=== PATIENT | male | born 1940 | race Caucasian/White ===

== ENCOUNTER 2018-02-22 10:54 | Inpatient (IN) | payer MEDICARE ==
[2018-02-22] MEDS ORDERED: ASPIRIN 81 MG TABLET, CHEWABLE PO ONE (11:16)
--- NOTE | 2018-02-22 11:18 | ER Document Report ---
ED Medical Screen (RME) - General Chief Complaint: Chest Pain Stated Complaint: CHEST PAIN Time Seen by Provider: 02/22/18 11:16 Notes: 77 years old male with no significant past medical history presents today with 2 episodes one yesterday morning and another this morning with epigastric/ substernal pain radiating to the both sides and numbness in the arm and weakness in the arm, general weakness lasting for about 2-3 hours. Associated with palpitation no nausea vomiting. Denied any difficulty in breathing. No cardiac history. No family history of cardiac history. Non-smoker no alcohol abuse. Currently feeling comfortable not in any distress. Examination benign TRAVEL OUTSIDE OF THE [place] IN LAST 30 DAYS: No - Related Data Allergies/Adverse Reactions: Iodinated Contrast- Oral and IV Dye [IV Dye, Iodine Containing] Allergy ( Verified 02/22/18 11:07) Anaphylaxis Past Medical History - Past Medical History Cardiac Medical History: Denies: Hx Heart Attack, Hx Hypertension Pulmonary Medical History: Denies: Hx Asthma Neurological Medical History: Denies: Hx Cerebrovascular Accident, Hx Seizures GI Medical History: Denies: Hx Hepatitis, Hx Hiatal Hernia, Hx Ulcer Infectious Medical History: Denies: Hx Hepatitis Past Surgical History: Denies: Hx Open Heart Surgery, Hx Pacemaker Doctor's Discharge - Discharge Referrals: BRAN SCHROEDER MD [Primary Care Provider] - Follow up as needed
[2018-02-22 11:54] LABS: HEMATOCRIT 44.2 % (37.9-51.0); HEMOGLOBIN 14.7 g/dL (13.5-17.0); MEAN CORPUSCULAR HEMOGLOBIN 31.9 pg (27.0-33.4); MEAN CORPUSCULAR HGB CONC 33.3 g/dL (32.0-36.0); MEAN CORPUSCULAR VOLUME 96 fl (80-97); PLATELET COUNT 189 10^3/uL (150-450); RED CELL DISTRIBUTION WIDTH 14.1 % (11.5-14.0); WHITE BLOOD COUNT 13.9 10^3/uL (4.0-10.5)
[2018-02-22 12:06] LABS: ALANINE AMINOTRANSFERASE 20 U/L (21-72); ALBUMIN 3.8 g/dL (3.5-5.0); ALKALINE PHOSPHATASE 56 U/L (38-126); ANION GAP 7 (5-19); ASPARTATE AMINO TRANSFERASE 15 U/L (17-59); BILIRUBIN,DIRECT 0.5 mg/dL (0.0-0.4); BILIRUBIN,TOTAL 0.9 mg/dL (0.2-1.3); BLOOD UREA NITROGEN 19 mg/dL (7-20); CARBON DIOXIDE 30 mmol/L (22-30); CHLORIDE 103 mmol/L (98-107); CREATINE KINASE 36 U/L (55-170); GLUCOSE 101 mg/dL (75-110); POTASSIUM 4.4 mmol/L (3.6-5.0); SODIUM 139.5 mmol/L (137-145); TOTAL PROTEIN 6.2 g/dL (6.3-8.2)
[2018-02-22 12:17] LABS: CREATINE KINASE MB 2.1 ng/mL (<4.55)
--- NOTE | 2018-02-22 12:18 | RADIOLOGY REPORT (SQ) ---
EXAM DESCRIPTION: CHEST SINGLE VIEW COMPLETED DATE/TIME: 02/22/2018 12:05 pm REASON FOR STUDY: Chest pain COMPARISON: None. EXAM PARAMETERS: NUMBER OF VIEWS: One view. TECHNIQUE: Single frontal radiographic view of the chest acquired. RADIATION DOSE: NA LIMITATIONS: Low lung volumes. FINDINGS: LUNGS AND PLEURA: No opacities, masses or pneumothorax. No pleural effusion. MEDIASTINUM AND HILAR STRUCTURES: No masses. Contour normal. HEART AND VASCULAR STRUCTURES: Heart is enlarged. No failure. BONES: No acute findings. HARDWARE: None in the chest. OTHER: No other significant finding. IMPRESSION: Negative chest allowing for low lung volumes. TECHNICAL DOCUMENTATION: JOB ID: [id number] [employer]- All Rights Reserved Reading location - IP/workstation name: [email or web address]
[2018-02-22 12:26] LABS: TROPONIN I 0.21 ng/mL
[2018-02-22 12:45] LABS: ABSOLUTE LYMPHOCYTES# (MANUAL) 8.8 10^3/uL (0.5-4.7); ABSOLUTE MONOCYTES # (MANUAL) 0.4 10^3/uL (0.1-1.4); ABSOLUTE NEUTROPHILS# (MANUAL) 4.7 10^3/uL (1.7-8.2); BASOPHILS % (MANUAL) 0 % (0-2); EOSINOPHILS % (MANUAL) 0 % (0-6); LYMPHOCYTES % (MANUAL) 37 % (13-45); MONOCYTES % (MANUAL) 3 % (3-13); SEGMENTED NEUTROPHILS % (MAN) 34 % (42-78); TOTAL CELLS COUNTED 100
[2018-02-22 13:00] LABS: HYPOCHROMASIA SLIGHT; OVALOCYTES SLIGHT; POIKILOCYTOSIS SLIGHT; SMUDGE CELLS PRESENT
[2018-02-22 13:01] LABS: PLATELET COMMENT ADEQUATE
--- NOTE | 2018-02-22 14:38 | EKG REPORT ---
SEVERITY:- ABNORMAL ECG - SINUS RHYTHM FIRST DEGREE AV BLOCK BORDERLINE LEFT AXIS DEVIATION : Confirmed by: Bianca Palomo MD 22-Feb-2018 14:38:14
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
[2018-02-22 15:52] LABS: APPEARANCE,URINE SLIGHTLY-CLOUDY; BILIRUBIN,URINE NEGATIVE (NEGATIVE); COLOR,URINE YELLOW; GLUCOSE, URINE NEGATIVE (NEGATIVE); KETONES,URINE NEGATIVE (NEGATIVE); LEUKOCYTE ESTERASE,URINE NEGATIVE (NEGATIVE); NITRITE,URINE NEGATIVE (NEGATIVE); PROTEIN,URINE NEGATIVE (NEGATIVE); URINE SPECIFIC GRAVITY 1.014; UROBILINOGEN,URINE NEGATIVE mg/dL (<2.0)
[2018-02-22] MEDS ORDERED: MORPHINE SULFATE 10 MG/ML INJ IV PRN (15:56)
[2018-02-22] MEDS ORDERED: NORMAL SALINE 1000 ML 1,000 ML IV PRN (15:56)
--- NOTE | 2018-02-22 16:27 | PDOC H&P ---
History of Present Illness Admission Date/PCP: 02/22/18 15:44 DILCIA MARTINEZ MD Patient complains of: Chest pain/tightness History of Present Illness: DUGLAS DICKENS SR is a 77 year old male who presents to the emergency room with tightness across his chest. There is no radiation. Patient's onset of symptoms were yesterday morning patient had an hour and a half of chest pain. He attributed it to heartburn and took an omeprazole of his 's Tums and an aspirin. His pain resolved and he went about his business he had no further chest pain throughout the day. This morning he had another episode he took Tagamet of his 's Tums and at this point because he never complains of any problems his insisted he come to the emergency room. Workup in the emergency room included laboratory studies which showed an abnormal lymphocyte count and a white count of 13,000 it was recommended patient have a flow cytometry done which was ordered by the emergency room physician. His troponin was elevated at 0.2 his EKG showed a normal sinus rhythm with a first-degree block no other ischemic changes noted. Patient suffers from arthritis and takes meloxicam and vitamins he is on no other medications he denies coronary disease denies cholesterol issues. Both parents lived into their 90s. Patient currently is pain-free will be admitted for his non-ST elevation myocardial infarction. Past Medical History Medical History: None - Other than osteoarthritis for which she takes meloxicam Cardiac Medical History: Denies: Myocardial Infarction, Hypertension Pulmonary Medical History: Denies: Asthma Neurological Medical History: Denies: Seizures GI Medical History: Denies: Hepatitis, Hiatal Hernia Hematology: Denies: Anemia, Sickle Cell Disease Past Surgical History Past Surgical History: Reports: Other - Lithotripsy, cataract, strabismus surgery x2 Denies: Pacemaker Social History Information Source: Patient Lives with: Spouse/Significant other Smoking Status: Never Smoker Frequency of Alcohol Use: Rare Drugs: None - Advance Directive Resuscitation Status: Full Code Family History Family History: Reviewed & Not Pertinent, Other - Parents in their late 90s Parental Family History Reviewed: Yes Children Family History Reviewed: Yes Sibling(s) Family History Reviewed.: Yes Medication/Allergy Allergies/Adverse Reactions: Iodinated Contrast- Oral and IV Dye [IV Dye, Iodine Containing] Allergy ( Verified 02/22/18 11:07) Anaphylaxis Review of Systems Constitutional: ABSENT: chills, fever(s), headache(s), weight gain, weight loss Ears: ABSENT: as per HPI, hearing changes, other Nose, Mouth, and Throat: ABSENT: as per HPI, headache(s), mouth pain, sore throat, vertigo, other Cardiovascular: PRESENT: chest pain. ABSENT: dyspnea on exertion, edema, orthropnea Respiratory: ABSENT: cough, hemoptysis Gastrointestinal: PRESENT: heartburn. ABSENT: abdominal pain, constipation, diarrhea, hematemesis, hematochezia, nausea, vomiting Genitourinary: ABSENT: dysuria, hematuria Musculoskeletal: ABSENT: joint swelling Integumentary: ABSENT: rash, wounds Neurological: ABSENT: abnormal gait, abnormal speech, confusion, dizziness, focal weakness, syncope Psychiatric: ABSENT: anxiety, depression, homidical ideation, suicidal ideation Endocrine: ABSENT: cold intolerance, heat intolerance, polydipsia, polyuria Hematologic/Lymphatic: ABSENT: easy bleeding, easy bruising Physical Exam Vital Signs: Temp Pulse Resp BP Pulse Ox 98.2 F 54 L 20 166/89 H 97 02/22/18 11:08 02/22/18 11:08 02/22/18 12:01 02/22/18 12:01 02/22/18 12:01 General appearance: PRESENT: no acute distress, well-developed, well-nourished Eye exam: PRESENT: conjunctiva pink, EOMI, PERRLA. ABSENT: scleral icterus Ear exam: PRESENT: normal external ear exam Mouth exam: PRESENT: moist, tongue midline Neck exam: ABSENT: carotid bruit, JVD, lymphadenopathy, thyromegaly Respiratory exam: PRESENT: clear to auscultation veronika. ABSENT: rales, rhonchi, wheezes Cardiovascular exam: PRESENT: RRR. ABSENT: diastolic murmur, rubs, systolic murmur Pulses: PRESENT: normal dorsalis pedis pul Vascular exam: PRESENT: normal capillary refill GI/Abdominal exam: PRESENT: normal bowel sounds, soft. ABSENT: distended, guarding, mass, organolmegaly, rebound, tenderness Extremities exam: PRESENT: full ROM. ABSENT: calf tenderness, clubbing, pedal edema Musculoskeletal exam: PRESENT: normal inspection. ABSENT: deformity, tenderness Neurological exam: PRESENT: alert, awake, oriented to person, oriented to place , oriented to time, oriented to situation, CN II-XII grossly intact. ABSENT: motor sensory deficit Psychiatric exam: PRESENT: appropriate affect, normal mood. ABSENT: homicidal ideation, suicidal ideation Skin exam: PRESENT: dry, intact, warm. ABSENT: cyanosis, rash Results Impressions: Chest X-Ray 02/22/18 11:16 IMPRESSION: Negative chest allowing for low lung volumes. Assessment & Plan - Diagnosis (1) NSTEMI (non-ST elevated myocardial infarction) Is this a current diagnosis for this admission?: Yes Plan: Case discussed with Dr. Palomo of cardiology. Will admit patient place on therapeutic Lovenox we will add beta-sherron and CHARLENE inhibitor for his hypertension. Patient has no history of hypertension but clearly is hypertensive at this time. Patient additionally has no prior history of cardiac disease or hyperlipidemia. Will initiate statin therapy with Lipitor and obtain a lipid panel in the morning. We will give patient gentle hydration in anticipation of possible cardiac catheterization although he is allergic to iodine. The plan currently is for patient undergo stress test on Monday. Will trend troponins (2) Hypertension Qualifiers: Hypertension type: unspecified secondary hypertension Qualified Code(s): I15.9 - Secondary hypertension, unspecified; I15 - Secondary hypertension Plan: No prior history of hypertension. Will initiate metoprolol 25 mg twice daily and lisinopril 10 mg daily. Additionally will apply Nitropaste for his chest pain complaint. (3) Chest pain Qualifiers: Chest pain type: unspecified Qualified Code(s): R07.9 - Chest pain, unspecified Plan: 2 days of chest pain 20 minutes to an hour and a half in duration. No prior history of exertional chest pain history. Elevated troponin currently pain-free - Time Time Spent: 50 to 70 Minutes Anticipated discharge: Home - Inpatient Certification Based on my medical assessment, after consideration of the patient's comorbidities, presenting symptoms, or acuity I expect that the services needed warrant INPATIENT care.: Yes I certify that my determination is in accordance with my understanding of Medicare's requirements for reasonable and necessary INPATIENT services [42 CFR 412.3e].: Yes Medical Necessity: Need Close Monitoring Due to Risk of Patient Decompensation
[2018-02-22] MEDS ORDERED: METOPROLOL TARTRATE 25 MG TABLET ONE (18:33)
[2018-02-22] MEDS ORDERED: LISINOPRIL 10 MG TABLET ONE (18:33)
[2018-02-22] MEDS: NITROGLYCERIN 2% OINTMENT 1 GM PACKET TP SCH (18:41)
[2018-02-22] MEDS ORDERED: LISINOPRIL 10 MG TABLET PO ONE (19:00)
[2018-02-22] MEDS ORDERED: METOPROLOL TARTRATE 25 MG TABLET PO ONE (19:00)
[2018-02-22] MEDS: FAMOTIDINE 20 MG TABLET PO SCH (21:19)
[2018-02-22] MEDS: ENOXAPARIN SODIUM INJ 120 MG/0.8 ML DISP.SYRIN SUBCUT SCH (21:19)
[2018-02-22] MEDS ORDERED: METOPROLOL TARTRATE 25 MG TABLET PO SCH ×2 (22:00)
[2018-02-22] MEDS ORDERED: ATORVASTATIN CALCIUM 40 MG TABLET PO SCH (22:00)
[2018-02-23] MEDS: NITROGLYCERIN 2% OINTMENT 1 GM PACKET TP SCH ×3 (00:22→12:39)
[2018-02-23 04:01] LABS: HEMATOCRIT 38.9 % (37.9-51.0); HEMOGLOBIN 12.9 g/dL (13.5-17.0); MEAN CORPUSCULAR HEMOGLOBIN 31.8 pg (27.0-33.4); MEAN CORPUSCULAR HGB CONC 33.3 g/dL (32.0-36.0); MEAN CORPUSCULAR VOLUME 96 fl (80-97); PLATELET COUNT 142 10^3/uL (150-450); RED BLOOD COUNT 4.08 10^6/uL (4.35-5.55); RED CELL DISTRIBUTION WIDTH 14.2 % (11.5-14.0); WHITE BLOOD COUNT 10.4 10^3/uL (4.0-10.5)
[2018-02-23 04:16] LABS: BLOOD UREA NITROGEN 21 mg/dL (7-20); CALCIUM 8.9 mg/dL (8.4-10.2); CHOLESTEROL 134.56 mg/dL (0-200); GLUCOSE 106 mg/dL (75-110); PHOSPHORUS 3.8 mg/dL (2.5-4.5); POTASSIUM 4.4 mmol/L (3.6-5.0); TRIGLYCERIDES 119 mg/dL (<150)
[2018-02-23 04:21] LABS: ANION GAP 5 (5-19); CARBON DIOXIDE 28 mmol/L (22-30); CHLORIDE 106 mmol/L (98-107); SODIUM 139.1 mmol/L (137-145)
[2018-02-23 04:27] LABS: DIRECT LDL 88 mg/dL (<100)
[2018-02-23] MEDS ORDERED: NORMAL SALINE 1000 ML 1,000 ML IV PRN (07:59)
[2018-02-23] MEDS ORDERED: ASPIRIN 81 MG TABLET, ENT COATED PO SCH (10:00)
[2018-02-23] MEDS ORDERED: METOPROLOL TARTRATE 25 MG TABLET PO SCH (10:00)
[2018-02-23] MEDS ORDERED: LISINOPRIL 5 MG TABLET PO SCH ×2 (10:00)
[2018-02-23] MEDS: ENOXAPARIN SODIUM INJ 120 MG/0.8 ML DISP.SYRIN SUBCUT SCH (10:05)
[2018-02-23] MEDS: FAMOTIDINE 20 MG TABLET PO SCH (10:05)
[2018-02-23 11:03] LABS: APPEARANCE,URINE CLEAR; BILIRUBIN,URINE NEGATIVE (NEGATIVE); COLOR,URINE YELLOW; GLUCOSE, URINE NEGATIVE (NEGATIVE); KETONES,URINE NEGATIVE (NEGATIVE); LEUKOCYTE ESTERASE,URINE NEGATIVE (NEGATIVE); NITRITE,URINE NEGATIVE (NEGATIVE); PROTEIN,URINE NEGATIVE (NEGATIVE); URINE SPECIFIC GRAVITY 1.016; UROBILINOGEN,URINE NEGATIVE mg/dL (<2.0)
--- NOTE | 2018-02-23 11:52 | PDOC PROGRESS REPORT ---
Subjective Progress Note for:: 02/23/18 Subjective:: 77-year-old white male with chest pain complaint elevated troponin. Troponins peaked at 0.35 an hour downtrending. EKG this morning shows anterior lateral ischemic changes in the T waves. Echocardiogram pending. Patient denies any chest pain since admission. Reason For Visit: NSTEMI Physical Exam Vital Signs: Temp Pulse Resp BP Pulse Ox 98.1 F 58 L 18 123/82 97 02/23/18 08:04 02/23/18 08:04 02/23/18 08:04 02/23/18 08:04 02/23/18 08:04 Intake & Output 02/22/18 02/23/18 02/24/18 06:59 06:59 06:59 Intake Total 50 Output Total 3 Balance 47 Weight 106.4 kg General appearance: PRESENT: no acute distress, well-developed, well-nourished Neck exam: ABSENT: carotid bruit, JVD, lymphadenopathy, thyromegaly Respiratory exam: PRESENT: clear to auscultation veronika. ABSENT: rales, rhonchi, wheezes Cardiovascular exam: PRESENT: RRR. ABSENT: diastolic murmur, rubs, systolic murmur GI/Abdominal exam: PRESENT: normal bowel sounds, soft. ABSENT: distended, guarding, mass, organolmegaly, rebound, tenderness Extremities exam: PRESENT: full ROM. ABSENT: calf tenderness, clubbing, pedal edema Results Laboratory Results: 02/23/18 03:54 02/23/18 03:54 02/23/18 02/23/18 02/23/18 03:54 03:54 10:12 WBC 10.4 RBC 4.08 L Hgb 12.9 L Hct 38.9 MCV 96 MCH 31.8 MCHC 33.3 RDW 14.2 H Plt Count 142 L Sodium 139.1 Potassium 4.4 Chloride 106 Carbon Dioxide 28 Anion Gap 5 BUN 21 H Creatinine 1.00 Est GFR ( Amer) > 60 Est GFR (Non-Af Amer) > 60 Glucose 106 Calcium 8.9 Phosphorus 3.8 Triglycerides 119 Cholesterol 134.56 LDL Cholesterol Direct 88 VLDL Cholesterol 24.0 HDL Cholesterol 28 L Urine Color Urine Appearance Urine pH Ur Specific [place] Urine Protein Urine Glucose (UA) Urine Ketones Urine Blood Urine Nitrite Ur Leukocyte Esterase Urine WBC (Auto) Urine RBC (Auto) Stool Occult Blood NEGATIVE 02/23/18 10:12 WBC RBC Hgb Hct MCV MCH MCHC RDW Plt Count Sodium Potassium Chloride Carbon Dioxide Anion Gap BUN Creatinine Est GFR ( Amer) Est GFR (Non-Af Amer) Glucose Calcium Phosphorus Triglycerides Cholesterol LDL Cholesterol Direct VLDL Cholesterol HDL Cholesterol Urine Color YELLOW Urine Appearance CLEAR Urine pH 5.0 Ur Specific [place] 1.016 Urine Protein NEGATIVE Urine Glucose (UA) NEGATIVE Urine Ketones NEGATIVE Urine Blood NEGATIVE Urine Nitrite NEGATIVE Ur Leukocyte Esterase NEGATIVE Urine WBC (Auto) 0 Urine RBC (Auto) 0 Stool Occult Blood 02/22/18 02/22/18 02/23/18 16:43 22:03 03:54 Troponin I 0.334 0.356 0.256 Impressions: Chest X-Ray 02/22/18 11:16 IMPRESSION: Negative chest allowing for low lung volumes. Assessment & Plan - Diagnosis (1) NSTEMI (non-ST elevated myocardial infarction) Is this a current diagnosis for this admission?: Yes Plan: Troponins now downtrending. EKG evolved with your lateral changes. Case discussed with Dr. Palomo who is recommending transfer for cardiac catheterization. Continue patient's beta-sherron CHARLENE inhibitor (2) Hypertension Qualifiers: Hypertension type: unspecified secondary hypertension Qualified Code(s): I15.9 - Secondary hypertension, unspecified; I15 - Secondary hypertension Is this a current diagnosis for this admission?: Yes Plan: Currently normotensive continue CHARLENE inhibitor and beta-sherron (3) Chest pain Qualifiers: Chest pain type: unspecified Qualified Code(s): R07.9 - Chest pain, unspecified Is this a current diagnosis for this admission?: Yes Plan: Further chest pain since admission. (4) Hyperlipidemia Is this a current diagnosis for this admission?: Yes Plan: Patient's cholesterol panel indicates elevated LDL of 88 depressed HDL of 28 and cholesterol of 134.. Continue Lipitor at 40 mg daily. - Time Time Spent with patient: 25-34 minutes
[2018-02-23 12:53] VITALS: BP 146/90
[2018-02-23] MEDS ORDERED: HYDROCORTISONE SOD SUCCINATE INJ/PF 100 MG/2 ML SDV IV SCH (13:00)
[2018-02-23] MEDS ORDERED: FAMOTIDINE 20 MG TABLET PO SCH (13:00)
[2018-02-23] MEDS ORDERED: DIPHENHYDRAMINE HCL 25 MG CAPSULE PO SCH (13:00)
--- NOTE | 2018-02-23 13:03 | PDOC TRANSFER SUMMARY ---
General Admission Date/PCP: 02/22/18 15:44 DILCIA MARTINEZ MD Admission Date: 02/22/18 Transfer Date: 02/23/18 Accepting Facility: [facility] Accepting Physician: Dr. Chioma Bryant Resuscitation Status: Full Code - Transfer Diagnosis (1) NSTEMI (non-ST elevated myocardial infarction) Is this a current diagnosis for this admission?: Yes (2) Hypertension Is this a current diagnosis for this admission?: Yes (3) Chest pain Is this a current diagnosis for this admission?: Yes (4) Hyperlipidemia Is this a current diagnosis for this admission?: Yes - Transfer Medications Home Medications: Cholecalciferol (Vitamin D3) [Vitamin D3] 1,000 unit PO DAILY 02/22/18 Cyanocobalamin (Vitamin B-12) [Vitamin B-12 1000 mcg Tablet] 1,000 mcg PO DAILY 02/22/18 Meloxicam [Mobic] 15 mg PO DAILY 02/22/18 Transfer Medications: Current Medications Aspirin (Ecotrin 81 Mg Ec Tablet) 81 mg PO DAILY [facility] Stop: 03/25/18 09:59 Last Admin: 02/23/18 10:05 Dose: 81 mg Atorvastatin Calcium (Lipitor 40 Mg Tablet) 40 mg PO QHS [facility] Stop: 03/24/18 21:59 Last Admin: 02/22/18 21:19 Dose: 40 mg Diphenhydramine HCl (Benadryl 25 Mg Capsule) 25 mg PO Q6 [facility] Stop: 03/25/18 12:59 Last Admin: 02/23/18 12:37 Dose: 25 mg Enoxaparin Sodium (Lovenox Inj 120 Mg/0.8 Ml Disp.Syrin) 105 mg SUBCUT Q12 [facility] Stop: 03/24/18 21:59 Last Admin: 02/23/18 10:05 Dose: 105 mg Famotidine (Pepcid 20 Mg Tablet) 20 mg PO Q12 [facility] Stop: 03/24/18 21:59 Last Admin: 02/23/18 10:05 Dose: 20 mg Hydrocortisone Sodium Succinate (Solu-Cortef Inj/Pf 100 Mg/ 2 Ml Sdv) 200 mg IV Q6 [facility] Stop: 03/25/18 12:59 Last Admin: 02/23/18 12:37 Dose: 200 mg Sodium Chloride (Nacl 0.9% 1000 Ml Iv Soln) 1,000 mls @ 50 mls/hr IV CONTINUOUS PRN PRN Reason: THIS MED IS NOT "PRN" Stop: 03/24/18 15:55 Lisinopril (Prinivil 5 Mg Tablet) 10 mg PO DAILY [facility] Stop: 03/25/18 09:59 Last Admin: 02/23/18 10:05 Dose: 10 mg Metoprolol Tartrate (Lopressor 25 Mg Tablet) 25 mg PO Q12 [facility] Stop: 03/25/18 09:59 Last Admin: 02/23/18 10:05 Dose: 25 mg Morphine Sulfate (Morphine 10 Mg/Ml Inj) 2 mg IV Q4HP PRN PRN Reason: pain if not relieved by nitro Stop: 03/01/18 15:55 Nitroglycerin (Nitrol 2% Ointment 1gm Packet) 0.5 gm TP Q6 [facility] Stop: 03/24/18 17:59 Last Admin: 02/23/18 12:39 Dose: Not Given Sodium Chloride (Saline Flush 2.5 Ml Monoject Prefil Syrin) 2.5 ml IV Q8 [facility] Stop: 03/24/18 21:59 Last Admin: 02/23/18 08:47 Dose: Not Given - Allergies Allergies/Adverse Reactions: Iodinated Contrast- Oral and IV Dye [IV Dye, Iodine Containing] Allergy ( Verified 02/22/18 11:07) Anaphylaxis - Diet/Activity Discharge Diet: Cardiac Hospital Course Hospital Course: Patient was admitted through the emergency room his presenting troponin of 0.2. He has no prior history of significant medical conditions. He did have 2 sequential days of chest pain which he treated with proton pump inhibitors and H2 blockers. He also took aspirin. Trending his troponins in the hospital he had a mora curve with a peak troponin of 0.35 before downtrending. He had no further chest pain while in the hospital he was initiated on aspirin Lovenox beta-sherron CHARLENE inhibitor. His blood pressure was normalized. His cholesterol showed a dyslipidemic pattern and he was initiated on statin therapy as well. The following morning his EKG showed anterior lateral T wave changes. A consultation with Dr. Palomo cardiology was obtained who recommended the patient be transferred for cardiac catheterization. He discussed the case with Dr. Chioma Bryant who accepted the patient in transfer. Patient has an allergy to iodine and prior to transfer Dr. Palomo initiated steroid therapy. Physical Exam Vital Signs: Temp Pulse Resp BP Pulse Ox 97.6 F 54 L 16 146/90 H 96 02/23/18 11:07 02/23/18 11:07 02/23/18 11:07 02/23/18 11:07 02/23/18 11:07 Intake & Output 02/22/18 02/23/18 02/24/18 06:59 06:59 06:59 Intake Total 50 577 Output Total 3 Balance 47 577 Weight 106.4 kg General appearance: PRESENT: no acute distress, well-developed, well-nourished Neck exam: ABSENT: carotid bruit, JVD, lymphadenopathy, thyromegaly Respiratory exam: PRESENT: clear to auscultation veronika. ABSENT: rales, rhonchi, wheezes Cardiovascular exam: PRESENT: RRR. ABSENT: diastolic murmur, rubs, systolic murmur GI/Abdominal exam: PRESENT: normal bowel sounds, soft. ABSENT: distended, guarding, mass, organolmegaly, rebound, tenderness Extremities exam: PRESENT: full ROM. ABSENT: calf tenderness, clubbing, pedal edema Results Laboratory Results: 02/23/18 03:54 02/23/18 03:54 02/23/18 02/23/18 02/23/18 03:54 03:54 10:12 WBC 10.4 RBC 4.08 L Hgb 12.9 L Hct 38.9 MCV 96 MCH 31.8 MCHC 33.3 RDW 14.2 H Plt Count 142 L Sodium 139.1 Potassium 4.4 Chloride 106 Carbon Dioxide 28 Anion Gap 5 BUN 21 H Creatinine 1.00 Est GFR ( Amer) > 60 Est GFR (Non-Af Amer) > 60 Glucose 106 Calcium 8.9 Phosphorus 3.8 Triglycerides 119 Cholesterol 134.56 LDL Cholesterol Direct 88 VLDL Cholesterol 24.0 HDL Cholesterol 28 L Urine Color Urine Appearance Urine pH Ur Specific [place] Urine Protein Urine Glucose (UA) Urine Ketones Urine Blood Urine Nitrite Ur Leukocyte Esterase Urine WBC (Auto) Urine RBC (Auto) Stool Occult Blood NEGATIVE 02/23/18 10:12 WBC RBC Hgb Hct MCV MCH MCHC RDW Plt Count Sodium Potassium Chloride Carbon Dioxide Anion Gap BUN Creatinine Est GFR ( Amer) Est GFR (Non-Af Amer) Glucose Calcium Phosphorus Triglycerides Cholesterol LDL Cholesterol Direct VLDL Cholesterol HDL Cholesterol Urine Color YELLOW Urine Appearance CLEAR Urine pH 5.0 Ur Specific [place] 1.016 Urine Protein NEGATIVE Urine Glucose (UA) NEGATIVE Urine Ketones NEGATIVE Urine Blood NEGATIVE Urine Nitrite NEGATIVE Ur Leukocyte Esterase NEGATIVE Urine WBC (Auto) 0 Urine RBC (Auto) 0 Stool Occult Blood 02/22/18 02/22/18 02/23/18 16:43 22:03 03:54 Troponin I 0.334 0.356 0.256 Impressions: Chest X-Ray 02/22/18 11:16 IMPRESSION: Negative chest allowing for low lung volumes. Plan Time Spent: Greater than 30 Minutes
--- NOTE | 2018-02-23 15:00 | XCELERA REPORT ---
[address] [address] Transthoracic Echocardiogram Report Name: DUGLAS DICKENS SR Age: 77 yrs Gender: Male : 1940 Patient Status: Inpatient Patient Location: [address] [place] [address] Study Date: 02/23/2018 09:02 AM Height: 71 in Weight: 229 lb BSA: 2.2 m2 Procedure: A two-dimensional transthoracic echocardiogram with color flow and Doppler was performed. The study was technically difficult with many images being suboptimal in quality. Study Quality: Technically suboptimal. Reason For Study: LV Function, size, wall thickness,Valve Function History: CHEST PAIN / NSTEMI. Ordering Physician: LARA JAVIER Performed By: Jaya Avalos Interpretation Summary The left ventricle is normal in size. There is normal left ventricular wall thickness. LV EF is 35% to 40% Left ventricular systolic function is moderately reduced. Doppler measurements suggest normal left ventricular diastolic function There is Hypokinesis o,f all the LV apical segments. There is no thrombus. The right ventricle is grossly normal size. The right atrium is normal. The left atrium is mildly dilated. There is no evidence of mitral valve prolapse. There is no vegetation seen on the mitral valve. There is no mitral valve stenosis. There is no aortic valve stenosis There is a mild amount of aortic regurgitation There is no tricuspid stenosis. There is a mild amount of tricuspid regurgitation There is mild pulmonary hypertension by echo RVSP is 42 to 47 mm of Hg , with RA mean of 5 to 10. The inferior vena cava appeared normal and decreased > 50% with respiration (RAP 5-10 mmHg) There is no pericardial effusion. MMode/2D Measurements & Calculations RVDd: 4.1 cm LVIDd: 5.9 cm FS: 29.1 % Ao root diam: 3.4 cm IVSd: 0.95 cm LVIDs: 4.2 cm EDV(Teich): 172.9 ml Ao root area: 9.2 cm2 LVPWd: 1.0 cm ESV(Teich): 77.8 ml LA dimension: 4.8 cm EF(Teich): 55.0 % Doppler Measurements & Calculations MV E max magaly: MV P1/2t max magaly: Ao V2 max: AI max magaly: 97.0 cm/sec 82.7 cm/sec 112.8 cm/sec 213.9 cm/sec MV A max magaly: MV P1/2t: 93.8 msec Ao max PG: AI max P.0 cm/sec MVA(P1/2t): 2.3 cm2 5.1 mmHg 18.3 mmHg MV E/A: 1.2 MV dec slope: AI dec slope: 82.5 cm/sec2 258.1 cm/sec2 AI P1/2t: MV dec time: 0.18 sec 759.5 msec LV V1 max PG: PA V2 max: TR max magaly: AV P1/2t-pr_phl: 3.5 mmHg 73.6 cm/sec 306.2 cm/sec 759.5 msec LV V1 max: PA max P.2 mmHg TR max P.1 cm/sec 37.5 mmHg MV P1/2t-pr_phl: 93.8 msec Left Ventricle The left ventricle is normal in size. There is normal left ventricular wall thickness. LV EF is 35% to 40%. Left ventricular systolic function is moderately reduced. Doppler measurements suggest normal left ventricular diastolic function. There is Hypokinesis o,f all the LV apical segments. There is no thrombus. Right Ventricle The right ventricle is grossly normal size. The right ventricle is not well visualized secondary to technical limitations. Atria The right atrium is normal. The left atrium is mildly dilated. Mitral Valve There is no evidence of mitral valve prolapse. There is no vegetation seen on the mitral valve. There is no mitral valve stenosis. There is a trace amount of mitral regurgitation. Aortic Valve There is no aortic valve stenosis. There is a mild amount of aortic regurgitation. Tricuspid Valve There is no tricuspid stenosis. There is a mild amount of tricuspid regurgitation. There is mild pulmonary hypertension by echo. RVSP is 42 to 47 mm of Hg , with RA mean of 5 to 10. Pulmonic Valve There is no pulmonic valvular stenosis. There is no pulmonic valvular regurgitation. Great Vessels The aortic root is normal size. The inferior vena cava appeared normal and decreased > 50% with respiration (RAP 5-10 mmHg). Effusions There is no pericardial effusion. : LARA JAVIER > Bianca Palomo
--- NOTE | 2018-02-23 20:55 | EKG REPORT ---
SEVERITY:- ABNORMAL ECG - SINUS RHYTHM MULTIPLE VENTRICULAR PREMATURE COMPLEXES FIRST DEGREE AV BLOCK BORDERLINE LEFT AXIS DEVIATION ABNORMAL T, CONSIDER ISCHEMIA, ANT-LAT LEADS : Confirmed by: Bianca Palomo MD 23-Feb-2018 20:54:59
== END 2018-02-23 14:25 | disposition short-term general hospital (02) | DRG 282 ==
LOC: ER 10:54 → EH 15:44 → 3S 18:06
PROVIDERS: ADMIT Internal Medicine; ATTEND Internal Medicine
DX: I21.4 Non-ST elevation (NSTEMI) myocardial infarction (principal); I10 Essential (primary) hypertension; M19.90 Unspecified osteoarthritis, unspecified site; E78.5 Hyperlipidemia, unspecified; Z87.442 Personal history of urinary calculi; Z91.041 Radiographic dye allergy status
CPT/HCPCS: 36415; 71045; 80048; 80053; 80061; 81001; 82272; 82550; 82553; 84100; 84484; 85025; 85027; 88184; 88185; 93005; 93010; 93306; 99285; J1650; J1720